=== PATIENT | male | born 1965 | race Caucasian/White ===

== ENCOUNTER → 2017-07-07 | Outpatient (CLI) | payer OTHER ==
[2013-03-23 04:14] VITALS: BP 139/95
[~2017-07-07] MED LIST: CITALOPRAM20 MG PO; LYRICA 150MG C150 MG PO; ZOCOR20 MG PO
[2017-07-07 12:30] LABS: BASO # 0.1 (0.02-0.10); EOS # 0.2 (0.04-0.40); EOS % 1.8 % (0.0-4.0); HEMATOCRIT 59.1 % (42.0-52.0); HEMOGLOBIN 19.4 g/dL (13.5-18.0); MEAN CELL VOLUME 95 fl (78-100); MEAN CORPUSCULAR HEMOGLOBIN 31 pg (27-31); MEAN CORPUSCULAR HGB CONC 33 g/dL (33-37); MEAN PLATELET VOLUME 9.7 fl (7.4-10.4); PLATELET COUNT 266 K/mm3 (130-400); RED BLOOD COUNT 6.23 M/mm3 (4.20-5.60); RED CELL DISTRIBUTION WIDTH 13.8 % (11.5-14.5); WHITE BLOOD COUNT 13.6 K/mm3 (4.8-10.8)
[2017-07-07 12:36] LABS: NEU # 9.2 (1.40-6.50)
[2017-07-07 14:23] LABS: BUN/CREATININE RATIO 12.6 (6.0-26.0); CALCIUM 9.3 mg/dL (8.4-10.2); POTASSIUM 4.3 mmol/L (3.6-5.0); TOTAL BILIRUBIN 0.4 mg/dL (0.2-1.3); TOTAL PROTEIN 7.8 g/dL (6.3-8.2)
== END ==
LOC: LAB 12:02
PROVIDERS: Family Medicine
DX: Z00.00 Encounter for general adult medical examination without abnormal findings (principal)

== ENCOUNTER 2017-10-02 11:00 | Outpatient (RCR) | payer OTHER ==
[2013-03-23 04:14] VITALS: BP 139/95
== END 2017-10-02 11:30 | disposition home or self-care (01) ==
LOC: PT 11:00
DX: M47.892 Other spondylosis, cervical region (principal); M48.02 Spinal stenosis, cervical region

== ENCOUNTER 2018-04-02 13:30 | Outpatient (RCR) | payer BC ==
[2013-03-23 04:14] VITALS: BP 139/95
== END 2018-04-28 | disposition home or self-care (01) ==
LOC: PT
DX: Z47.89 Encounter for other orthopedic aftercare (principal); Z98.1 Arthrodesis status

== ENCOUNTER → 2020-04-01 | Outpatient (CLI) | payer BC ==
[2013-03-23 04:14] VITALS: BP 139/95
== END ==
LOC: LAB 10:20
DX: R19.7 Diarrhea, unspecified (principal); R05 Cough; Z20.828 Contact with and (suspected) exposure to other viral communicable diseases

== ENCOUNTER 2020-12-22 10:00 | Outpatient (RCR) | payer BC | END 2021-03-22 | disposition home or self-care (01) | LOC: PT | DX: M75.91 Shoulder lesion, unspecified, right shoulder (principal); M19.011 Primary osteoarthritis, right shoulder ==

== ENCOUNTER → 2021-02-15 | Outpatient (CLI) | payer BC | LOC: RAD 12:00 | DX: K21.9 Gastro-esophageal reflux disease without esophagitis (principal) ==

== ENCOUNTER → 2023-03-03 | Outpatient (CLI) | payer BC ==
[2023-03-03 09:11] LABS: BASO # 0.12 K/mm3 (0.02-0.10); EOS # 0.27 K/mm3 (0.04-0.40); EOS % 2.2 % (0.0-4.0); HEMATOCRIT 56.6 % (42.0-52.0); HEMOGLOBIN 18.6 g/dL (13.5-18.0); LYMPH# 2.51 K/mm3 (1.50-4.00); MEAN CELL VOLUME 97 fl (78-100); MEAN CORPUSCULAR HEMOGLOBIN 32 pg (27-31); MEAN CORPUSCULAR HGB CONC 33 g/dL (33-37); MEAN PLATELET VOLUME 9.2 fl (7.4-10.4); MONO # 0.72 K/mm3 (0.20-0.80); NEU # 8.65 K/mm3 (1.40-6.50); PLATELET COUNT 266 K/mm3 (130-400); RED BLOOD COUNT 5.84 M/mm3 (4.20-5.60); RED CELL DISTRIBUTION WIDTH 12.6 % (11.5-14.5); WHITE BLOOD COUNT 12.3 K/mm3 (4.8-10.8)
[2023-03-03 09:53] LABS: ALBUMIN 4.2 g/dL (3.5-5.0)
[2023-03-03 09:54] LABS: CALCIUM 9.3 mg/dL (8.3-10.5)
[2023-03-03 09:55] LABS: TOTAL PROTEIN 7.2 g/dL (6.4-8.3)
[2023-03-03 09:57] LABS: TOTAL BILIRUBIN 0.8 mg/dL (0.2-1.2)
== END ==
LOC: LAB 08:58
PROVIDERS: Nurse Practitioner
DX: I10 Essential (primary) hypertension (principal); K21.9 Gastro-esophageal reflux disease without esophagitis